=== PATIENT | male | born 1970 | race Caucasian/White ===

== ENCOUNTER 2021-03-12 05:23 | Emergency (ER) | payer BC ==
[2021-03-12 05:30] VITALS: BP 161/99; PULSE 82; RESP 20; TEMP 98.4
[2021-03-12] MEDS ORDERED: MORPHINE SULFATE 4 MG/ML SYRINGE IV STA (06:11)
--- NOTE | 2021-03-12 06:43 | ED ---
Lower Extremity Injury HPI - General Chief Complaint: Extremity Injury, Lower Stated Complaint: Leg Pain Time Seen by Provider: 03/12/21 05:33 Source: patient, RN notes reviewed Mode of arrival: ambulatory Limitations: no limitations - History of Present Illness Initial Comments: Patient is a 50-year-old male that presents to the emergency department co mplaining of right knee pain. He notes that he does have a history of gout but does not take any maintenance medications for. He notes that his knee became painful over the last several days just inferior to the right knee. He notes that it is tender and has decreased range of motion secondary to pain. He notes that he did try taking some Motrin and indomethacin last night and this morning with no relief. He decided to come in to the emergency room to get evaluated. He noted that his pain was an 8-9 out of 10 with no relief from medications at home. She denied any weakness numbness tingling decreased range of motion or strength in his right lower extremity. He denied any chest pain shortness of breath headache nausea vomiting diarrhea constipation fever fatigue chills. - Related Data Previous Rx's Medication Instructions Recorded predniSONE 10 mg PO DIRECTED #30 tab 03/12/21 Allergies Allergy/AdvReac Type Severity Reaction Status Date / Time No Known Allergies Allergy Verified 03/12/21 05:30 Review of Systems ROS Statement: Those systems with pertinent positive or pertinent negative responses have been documented in the HPI. ROS Other: All systems not noted in ROS Statement are negative. Past Medical History Past Medical History: Hypertension Additional Past Medical History / Comment(s): Gout, depression History of Any Multi-Drug Resistant Organisms: None Reported Past Surgical History: Adenoidectomy, Appendectomy, Orthopedic Surgery Past Psychological History: Depression Smoking Status: Former smoker Past Alcohol Use History: Occasional Past Drug Use History: None Reported General Exam Limitations: no limitations General appearance: alert, in no apparent distress Head exam: Present: atraumatic, normocephalic, normal inspection Eye exam: Present: normal appearance, PERRL, EOMI. Absent: scleral icterus, conjunctival injection, periorbital swelling Neck exam: Present: normal inspection Respiratory exam: Present: normal lung sounds bilaterally. Absent: respiratory distress, wheezes, rales, rhonchi, stridor Cardiovascular Exam: Present: regular rate, normal rhythm, normal heart sounds. Absent: systolic murmur, diastolic murmur, rubs, gallop, clicks GI/Abdominal exam: Present: soft, normal bowel sounds. Absent: distended, tenderness, guarding, rebound, rigid Extremities exam: Present: normal inspection, full ROM, normal capillary refill. Absent: tenderness, pedal edema, joint swelling, calf tenderness Right Knee exam: Present: normal inspection, full ROM, tenderness, erythema, effusion (Minimally swollen.), full knee extension. Absent: abrasion, laceration, ecchymosis, deformity, crepitus, dislocation Neurological exam: Present: alert, oriented X3, CN II-XII intact Psychiatric exam: Present: normal affect, normal mood Skin exam: Present: warm, dry, intact, normal color. Absent: rash Course Vital Signs 03/12/21 05:25 Temperature 98.4 F Pulse Rate 82 Respiratory 20 Rate Blood Pressure 161/99 O2 Sat by Pulse 98 Oximetry Medical Decision Making - Medical Decision Making 50-year-old male complaining of right he pain with history of gout. Right knee x-ray, 4 mg of morphine ordered. X-ray negative for any acute process. Most likely Doppler due to patient's symptomatology and history of gout. Formal milligrams of morphine ordered for pain control. Case discussed with Dr. Hernandez, patient discharged home with follow-up to primary care. - Radiology Data Radiology results: report reviewed, image reviewed Right knee x-ray: Unremarkable. No fracture. No dislocation. Soft tissues mild joint effusion. Disposition Clinical Impression: Gout Disposition: HOME SELF-CARE Condition: Stable Instructions (If sedation given, give patient instructions): Knee Pain (ED) Additional Instructions: Please return to the Emergency Department if symptoms worsen or any other concerns. Follow-up with primary care in 3-5 days. Take prednisone as prescribed. Continue take indomethacin as prescribed. Prescriptions: predniSONE 10 mg PO DIRECTED #30 tab Is patient prescribed a controlled substance at d/c from ED?: No Referrals: Nonstaff,Physician [Primary Care Provider] - 1-2 days Time of Disposition: 07:33
--- NOTE | 2021-03-12 06:50 | XR ---
EXAM: XR Right Knee, 3 Views CLINICAL HISTORY: ITS.REASON XR Reason: right knee pain TECHNIQUE: Three views of the right knee. COMPARISON: No relevant prior studies available. FINDINGS: Bones/joints: Unremarkable. No acute fracture. No dislocation. Soft tissues: Mild joint effusion. IMPRESSION: No fracture.
[2021-03-12] MEDS ORDERED: MORPHINE SULFATE 4 MG/ML SYRINGE IVP STA (07:21)
== END 2021-03-12 07:54 | disposition home or self-care (01) ==
LOC: EC 05:23
DX: M10.9 Gout, unspecified (principal); I10 Essential (primary) hypertension; Z87.891 Personal history of nicotine dependence
CPT/HCPCS: 99283; 73564; J2270